=== PATIENT | male | born 1935 ===

== ENCOUNTER 2018-06-30 12:32 | Day surgery (SDC) | payer OTHER ==
[2018-06-30] MEDS: PHENYLEPHRINE HCL 10% OPHTHAL SOL ONE ×3 (13:50→14:02)
[2018-06-30] MEDS: CYCLOPENTOLATE 1% SOL ONE ×3 (13:51→14:02)
[2018-06-30] MEDS: TROPICAMIDE 1% OPHTH SOL ONE ×3 (13:51→14:02)
[2018-06-30] MEDS: KETOROLAC/HOME 0.5% SOL LEFTEYE ONE ×3 (13:52→14:02)
[2018-06-30] MEDS: MOXIFLOXACIN-HOME SOL LEFTEYE ONE ×2 (13:52→13:59)
[2018-06-30] MEDS: TETRACAINE HCL 0.5 % 1 DROP SOL ONE ×2 (14:06→15:04)
[2018-06-30] MEDS ORDERED: MIDAZOLAM 2 MG/2 ML SOL ONE (14:44)
[2018-06-30] MEDS ORDERED: POVIDONE IODINE 5% SOL ONE (14:58)
[2018-06-30] MEDS ORDERED: BSS W/ 0.5 MG P.F. EPI 1 BOTTLE ONE (14:58)
[2018-06-30] MEDS ORDERED: LIDOCAINE HCL 2% MPF 10 ML SOL ONE (14:58)
[2018-06-30] MEDS ORDERED: ACETAZOLAMIDE 250 MG PO ONE (15:14)
[2018-06-30 15:36] VITALS: BP 145/74; PULSE 76; RESP 20; TEMP 97.4; O2SAT 96
== END 2018-06-30 15:55 | disposition home or self-care (01) | DRG 125 ==
LOC: SURG 12:32
PROVIDERS: ATTEND Ophthalmology
DX: H25.89 Other age-related cataract (principal)
CPT/HCPCS: J2250; A9270-GY